=== PATIENT | male | born 1960 | race Caucasian/White ===

== ENCOUNTER 2017-12-27 16:13 | Inpatient (IN) | payer OTHER ==
[2017-12-27] MEDS ORDERED: DILTIAZEM 50 MG INJ IV (16:30)
[2017-12-27] MEDS: DILTIAZEM 50 MG INJ IV (16:39)
[2017-12-27] MEDS: SOD CHLORIDE 0.9% 1,000 ML IV (16:40)
[2017-12-27] MEDS: ADENOSINE 6 MG INJ IV (16:40)
[2017-12-27] MEDS: ASPIRIN 325 MG TAB PO (16:40)
[2017-12-27 16:52] LABS: WHITE BLOOD COUNT 6.3 10^3/ul (4.8-10.8)
[2017-12-27 16:52] LABS: ABNORMAL IP MESSAGE 1; HEMATOCRIT 39.2 % (42.0-52.0); HEMOGLOBIN 14.4 g/dl (14.0-18.0); MEAN CORPUSCULAR HEMOGLOBIN 35.9 pg (29.0-33.0); MEAN CORPUSCULAR HGB CONC 36.7 g/dl (32.0-37.0); MEAN CORPUSCULAR VOLUME 97.8 fl (82.0-101.0); MEAN PLATELET VOLUME 9.4 fl (7.4-10.4); PLATELET COUNT 282 10^3/UL (140-415); POSITIVE DIFF @See below; RED BLOOD COUNT 4.01 10^6/ul (4.70-6.10); RED CELL DISTRIBUTION WIDTH 11.4 % (11.5-14.5)
[2017-12-27 16:56] LABS: ADD MAN DIFF? YES
[2017-12-27] MEDS: DILTIAZEM-D5W 125MG/125ML DRIP 125 ML IV (17:14)
[2017-12-27 17:46] LABS: ANION GAP 21 (8-16); BLOOD UREA NITROGEN 33 mg/dl (7-20); CALCIUM 8.5 mg/dl (8.4-10.2); CARBON DIOXIDE 20 mmol/L (21-31); CHLORIDE 89 mmol/L (97-110); CREATININE 0.67 mg/dl (0.61-1.24); GLUCOSE 90 mg/dl (70-220); SODIUM 127 mmol/L (135-144)
[2017-12-27 17:51] LABS: POTASSIUM 2.9 mmol/L (3.5-5.1)
[2017-12-27 17:58] LABS: B-TYPE NATRIURETIC PEPTIDE 959 PG/ML (0-125); TROPONIN-I 0.046 ng/ml (0.00-0.12)
[2017-12-27] MEDS: POTASSIUM CHLORIDE (SR) 20 MEQ TAB PO (18:02)
[2017-12-27 18:31] LABS: MAGNESIUM 2.2 mg/dl (1.7-2.5)
[2017-12-27 18:55] LABS: BAND NEUTROPHILS #M 0.8 10^3/ul (0.0-0.6); BAND NEUTROPHILS % (M) 14 % (0-4); GIANT THROMBO% (M) 2 % (0-0); LYMPHOCYTES #M 0.8 10^3/ul (0.8-2.9); LYMPHOCYTES % (M) 13 % (15-51); MONOCYTE #M 1.1 10^3/ul (0.3-0.9); MONOCYTES % (M) 18 % (0-11); PLATELET ESTIMATE NORMAL; SEG NEUT #M 3.5 10^3/ul (1.6-7.5); SEGMENTED NEUTROPHILS (M) % 55 % (39-77)
[2017-12-27 19:09] LABS: INR 0.88; PT RATIO 0.9
[2017-12-27] MEDS: SOD CHLORIDE 0.45% 1,000 ML IV (19:10)
[2017-12-27] MEDS ORDERED: DILTIAZEM-D5W 125MG/125ML DRIP 125 ML IV (19:30)
[2017-12-27] MEDS ORDERED: ALBUTEROL/IPRATROPIUM (NEB) 3 ML AMP HHN (19:30)
[2017-12-27] MEDS ORDERED: NITROGLYCERIN (SL) 0.4 MG TAB SL (19:30)
[2017-12-27] MEDS ORDERED: MAGNESIUM HYDROXIDE 30ML CUP PO (19:30)
[2017-12-27] MEDS ORDERED: ACETAMINOPHEN 325 MG TAB PO (19:30)
[2017-12-27] MEDS ORDERED: NA PHOSPHATE/BIPHOS 133 ML ENEMA PR (19:30)
[2017-12-27] MEDS ORDERED: NACL 0.9% 3 ML SYG IV (19:30)
[2017-12-27 19:42] LABS: PARTIAL THROMBOPLASTIN TIME 29.5 Sec (25.0-35.0)
[2017-12-27 19:55] LABS: CREATINE KINASE 669 IU/L (23-200)
[2017-12-27 20:07] LABS: CK INDEX 1.4; TROPONIN-I 0.061 ng/ml (0.00-0.12)
[2017-12-27 20:16] LABS: CK-MB 9.62 ng/ml (0.0-2.4)
[2017-12-27] MEDS: FAMOTIDINE 20 MG TAB PO (22:01)
[2017-12-27] MEDS: HEPARIN 5,000 UNIT/0.5 ML VIAL SC (22:28)
[2017-12-28 00:15] LABS: CREATINE KINASE 551 IU/L (23-200)
[2017-12-28 00:26] LABS: CK INDEX 1.4; TROPONIN-I 0.057 ng/ml (0.00-0.12)
[2017-12-28 00:29] LABS: CK-MB 7.93 ng/ml (0.0-2.4)
[2017-12-28 00:32] LABS: FREE T4 (FREE THYROXINE) 1.56 ng/dl (0.64-1.79)
[2017-12-28] MEDS: POTASSIUM CHLORIDE 30 MEQ in SOD CHLORIDE 0.9% 1,000 ML IV ×2 (03:17→11:00)
[2017-12-28] MEDS: morphine 2 MG INJ IV (03:26)
[2017-12-28 03:50] LABS: CREATINE KINASE 431 IU/L (23-200)
[2017-12-28 03:53] LABS: ETHANOL < 10.0 mg/dl
[2017-12-28 04:03] LABS: CK INDEX 1.5; TROPONIN-I 0.039 ng/ml (0.00-0.12)
[2017-12-28 04:14] LABS: CK-MB 6.68 ng/ml (0.0-2.4)
[2017-12-28] MEDS: DILTIAZEM 60 MG TAB PO ×3 (05:50→18:26)
[2017-12-28 06:11] LABS: WHITE BLOOD COUNT 3.8 10^3/ul (4.8-10.8)
[2017-12-28 06:11] LABS: HEMATOCRIT 32.5 % (42.0-52.0); HEMOGLOBIN 11.9 g/dl (14.0-18.0); MEAN CORPUSCULAR HEMOGLOBIN 35.8 pg (29.0-33.0); MEAN CORPUSCULAR HGB CONC 36.6 g/dl (32.0-37.0); MEAN CORPUSCULAR VOLUME 97.9 fl (82.0-101.0); MEAN PLATELET VOLUME 8.8 fl (7.4-10.4); PLATELET COUNT 219 10^3/UL (140-415); RED BLOOD COUNT 3.32 10^6/ul (4.70-6.10); RED CELL DISTRIBUTION WIDTH 11.4 % (11.5-14.5)
[2017-12-28 06:27] LABS: CHOLESTEROL 154 mg/dl (100-200)
[2017-12-28 06:27] LABS: CHOL/HDL RATIO 2.2 RATIO; HDL CHOLESTEROL 67 mg/dl (28-71); LDL CHOLESTEROL,CALCULATED 73 mg/dl; TRIGLYCERIDES 72 mg/dl (0-149)
[2017-12-28 06:28] LABS: ADD MAN DIFF? YES
[2017-12-28 06:34] LABS: ANION GAP 14 (8-16); BLOOD UREA NITROGEN 18 mg/dl (7-20); CALCIUM 8.1 mg/dl (8.4-10.2); CARBON DIOXIDE 26 mmol/L (21-31); CHLORIDE 92 mmol/L (97-110); GLUCOSE 74 mg/dl (70-220); PHOSPHORUS 1.9 mg/dl (2.5-4.9); POTASSIUM 3.4 mmol/L (3.5-5.1); SODIUM 129 mmol/L (135-144)
[2017-12-28 06:36] LABS: CREATINE KINASE 360 IU/L (23-200)
[2017-12-28 06:40] LABS: CK INDEX 1.6
[2017-12-28 07:06] LABS: CK-MB 5.74 ng/ml (0.0-2.4)
[2017-12-28 08:11] LABS: BAND NEUTROPHILS #M 0.5 10^3/ul (0.0-0.6); BAND NEUTROPHILS % (M) 14 % (0-4); LYMPHOCYTES #M 0.9 10^3/ul (0.8-2.9); LYMPHOCYTES % (M) 24 % (15-51); MONOCYTE #M 0.9 10^3/ul (0.3-0.9); MONOCYTES % (M) 24 % (0-11); PLATELET ESTIMATE NORMAL; REACTIVE LYMPHOCYTES% (M) 1 % (0-0); SEG NEUT #M 1.4 10^3/ul (1.6-7.5); SEGMENTED NEUTROPHILS (M) % 37 % (39-77)
[2017-12-28 08:37] LABS: HEMOGLOBIN A1C 4.7 % (0-5.9)
[2017-12-28] MEDS: FAMOTIDINE 20 MG TAB PO ×2 (08:41→20:28)
[2017-12-28] MEDS: HEPARIN 5,000 UNIT/0.5 ML VIAL SC ×2 (08:43→20:33)
[2017-12-28 08:57] LABS: ADD UMIC YES; UR ASCORBIC ACID NEGATIVE (NEGATIVE); UR BACTERIA FEW /HPF (NONE SEEN); UR BILIRUBIN (Dip) NEGATIVE (NEGATIVE); UR BLOOD (Dip) 1+ mg/dL (NEGATIVE); UR CLARITY CLEAR (CLEAR); UR COLOR YELLOW (YELLOW); UR GLUCOSE (Dip) 2+ mg/dL (NEGATIVE); UR KETONES (Dip) 1+ mg/dL (NEGATIVE); UR LEUKOCYTE ESTERASE (Dip) 3+ Leu/ul (NEGATIVE); UR NITRITE (Dip) NEGATIVE (NEGATIVE); UR RBC 2 /HPF (0-5); UR TOTAL PROTEIN (Dip) NEGATIVE (NEGATIVE); UR UROBILINOGEN (Dip) 2+ mg/dL (NEGATIVE); UR WBC 28 /HPF (0-5)
[2017-12-28] MEDS: POTASSIUM PHOSPHATE 30 MM in SOD CHLORIDE 0.9% 250 ML IVPB (09:30)
[2017-12-28 09:51] LABS: AMPHETAMINE/METHAMPHETAMINE Negative (NEGATIVE); BARBITURATES Negative (NEGATIVE); BENZODIAZEPINES Negative (NEGATIVE); CANNABINOIDS Positive (NEGATIVE); COCAINE Negative (NEGATIVE); OPIATES Negative (NEGATIVE)
[2017-12-28] MEDS: SOD CHLORIDE 0.9% 1,000 ML IV (10:24)
[2017-12-29] MEDS: DILTIAZEM 60 MG TAB PO ×3 (00:07→12:35)
[2017-12-29] MEDS: SOD CHLORIDE 0.9% 1,000 ML IV ×2 (00:08→19:38)
[2017-12-29 06:51] LABS: ADD MAN DIFF? NO
[2017-12-29 07:04] LABS: WHITE BLOOD COUNT 4.8 10^3/ul (4.8-10.8)
[2017-12-29 07:04] LABS: ABNORMAL IP MESSAGE 1; BASOPHILS % 0.2 % (0.0-2.0); EOSINOPHILS % 0.4 % (0.0-7.0); HEMATOCRIT 33.1 % (42.0-52.0); HEMOGLOBIN 12.1 g/dl (14.0-18.0); LYMPHOCYTES # 0.5 10^3/ul (0.8-2.9); LYMPHOCYTES % 10.3 % (15.0-51.0); MEAN CORPUSCULAR HEMOGLOBIN 36.4 pg (29.0-33.0); MEAN CORPUSCULAR HGB CONC 36.6 g/dl (32.0-37.0); MEAN CORPUSCULAR VOLUME 99.7 fl (82.0-101.0); MONOCYTE # 1.1 10^3/ul (0.3-0.9); MONOCYTES % 23.3 % (0.0-11.0); NEUTROPHILS % 63.5 % (39.0-77.0); PLATELET COUNT 248 10^3/UL (140-415); POSITIVE DIFF @See below; RED BLOOD COUNT 3.32 10^6/ul (4.70-6.10); RED CELL DISTRIBUTION WIDTH 11.4 % (11.5-14.5)
[2017-12-29 07:25] LABS: ANION GAP 11 (8-16); BLOOD UREA NITROGEN 7 mg/dl (7-20); CALCIUM 8.2 mg/dl (8.4-10.2); CARBON DIOXIDE 29 mmol/L (21-31); CHLORIDE 93 mmol/L (97-110); CREATININE 0.58 mg/dl (0.61-1.24); GLUCOSE 81 mg/dl (70-220); SODIUM 130 mmol/L (135-144)
[2017-12-29 07:34] LABS: POTASSIUM 2.9 mmol/L (3.5-5.1)
[2017-12-29] MEDS: POTASSIUM CHLORIDE (SR) 20 MEQ TAB PO (09:15)
[2017-12-29] MEDS: FAMOTIDINE 20 MG TAB PO ×2 (09:16→22:13)
[2017-12-29] MEDS: HEPARIN 5,000 UNIT/0.5 ML VIAL SC ×2 (09:25→22:22)
[2017-12-29] MEDS: NYSTATIN SUSP 5 ML CUP PO ×4 (10:33→22:13)
[2017-12-29] MEDS: POTASSIUM CHLORIDE 100 ML IVPB ×2 (10:34→14:33)
[2017-12-29] MEDS ORDERED: VITAMIN A & D 5 GM OINT PACKET TOP (19:43)
[2017-12-30] MEDS: HYDROCODONE/APAP (5/325) TAB PO ×3 (00:10→20:15)
[2017-12-30] MEDS: morphine 2 MG INJ IV ×3 (00:55→12:29)
[2017-12-30] MEDS: SOD CHLORIDE 0.9% 1,000 ML IV ×2 (02:38→08:45)
[2017-12-30] MEDS: LIDOCAINE 5% PATCH TD ×3 (02:41→18:30)
[2017-12-30] MEDS: HYDROmorphONE 0.5 MG/0.5 ML SYG IV ×2 (03:02→22:47)
[2017-12-30] MEDS: KETOROLAC 30 MG INJ IV ×2 (05:46→20:15)
[2017-12-30] MEDS: hydrALAzine 20 MG INJ IV (05:46)
[2017-12-30] MEDS: NYSTATIN SUSP 5 ML CUP PO ×4 (08:43→20:15)
[2017-12-30] MEDS: METOPROLOL (XL) 25 MG TAB PO (08:45)
[2017-12-30] MEDS: FAMOTIDINE 20 MG TAB PO ×2 (08:45→20:15)
[2017-12-30] MEDS: HEPARIN 5,000 UNIT/0.5 ML VIAL SC ×2 (08:48→20:30)
[2017-12-30 09:51] LABS: WHITE BLOOD COUNT 14.2 10^3/ul (4.8-10.8)
[2017-12-30 09:51] LABS: ABNORMAL IP MESSAGE 1; HEMATOCRIT 32.4 % (42.0-52.0); HEMOGLOBIN 11.8 g/dl (14.0-18.0); MEAN CORPUSCULAR HEMOGLOBIN 36.2 pg (29.0-33.0); MEAN CORPUSCULAR HGB CONC 36.4 g/dl (32.0-37.0); MEAN CORPUSCULAR VOLUME 99.4 fl (82.0-101.0); MEAN PLATELET VOLUME 8.9 fl (7.4-10.4); PLATELET COUNT 270 10^3/UL (140-415); POSITIVE DIFF @See below; RED BLOOD COUNT 3.26 10^6/ul (4.70-6.10); RED CELL DISTRIBUTION WIDTH 11.4 % (11.5-14.5)
[2017-12-30 09:57] LABS: ADD MAN DIFF? YES
[2017-12-30 10:16] LABS: ALANINE AMINOTRANSFERASE 55 IU/L (13-69); ALBUMIN 2.7 g/dl (3.3-4.9); ALBUMIN/GLOBULIN RATIO 1.08; ALKALINE PHOSPHATASE 55 IU/L (42-121); ANION GAP 6 (8-16); ASPARTATE AMINO TRANSFERASE 27 IU/L (15-46); BILIRUBIN,INDIRECT 0.7 mg/dl (0-1.1); BILIRUBIN,TOTAL 0.7 mg/dl (0.2-1.3); BLOOD UREA NITROGEN 6 mg/dl (7-20); CALCIUM 8.4 mg/dl (8.4-10.2); CARBON DIOXIDE 34 mmol/L (21-31); CHLORIDE 89 mmol/L (97-110); CREATININE 0.61 mg/dl (0.61-1.24); GLUCOSE 93 mg/dl (70-220); POTASSIUM 3.4 mmol/L (3.5-5.1); SODIUM 126 mmol/L (135-144); TOTAL PROTEIN 5.2 g/dl (6.1-8.1)
[2017-12-30 10:22] LABS: MAGNESIUM 1.2 mg/dl (1.7-2.5)
[2017-12-30 10:22] LABS: PHOSPHORUS 1.9 mg/dl (2.5-4.9)
[2017-12-30 10:39] LABS: ANISOCYTOSIS 1+ (0-0); BAND NEUTROPHILS #M 7.6 10^3/ul (0.0-0.6); BAND NEUTROPHILS % (M) 54 % (0-4); GIANT THROMBO% (M) 2 % (0-0); LYMPHOCYTES #M 0.4 10^3/ul (0.8-2.9); LYMPHOCYTES % (M) 3 % (15-51); METAMYELOCYTES #M 0.1 10^3/ul (0.0-0.0); METAMYELOCYTES %M 1 % (0-0); MONOCYTE #M 0.4 10^3/ul (0.3-0.9); MONOCYTES % (M) 3 % (0-11); PLATELET ESTIMATE NORMAL; POLYCHROMASIA 3+ (0-0); SEG NEUT #M 6.6 10^3/ul (1.6-7.5); SEGMENTED NEUTROPHILS (M) % 39 % (39-77); SMUDGE%M 2 % (0-0)
[2017-12-30] MEDS: POTASSIUM CHLORIDE (SR) 20 MEQ TAB PO (11:49)
[2017-12-30] MEDS: MAGNESIUM OXIDE 400 MG TAB PO ×2 (12:29→20:21)
[2017-12-30] MEDS: SOD PHOS MONO/DIBAS 250 MG TAB PO (15:28)
[2017-12-30] MEDS ORDERED: ALBUTEROL 0.083% (NEB) 2.5 MG/3 ML AMP HHN (15:30)
[2017-12-30 18:11] LABS: ADD UMIC YES; UR ASCORBIC ACID NEGATIVE (NEGATIVE); UR BILIRUBIN (Dip) NEGATIVE (NEGATIVE); UR BLOOD (Dip) NEGATIVE (NEGATIVE); UR CLARITY CLEAR (CLEAR); UR COLOR YELLOW (YELLOW); UR GLUCOSE (Dip) 1+ mg/dL (NEGATIVE); UR KETONES (Dip) 1+ mg/dL (NEGATIVE); UR LEUKOCYTE ESTERASE (Dip) NEGATIVE Leu/ul (NEGATIVE); UR NITRITE (Dip) NEGATIVE (NEGATIVE); UR RBC 1 /HPF (0-5); UR SPECIFIC GRAVITY (Dip) 1.016 (1.003-1.030); UR TOTAL PROTEIN (Dip) 1+ mg/dl (NEGATIVE); UR UROBILINOGEN (Dip) 2+ mg/dL (NEGATIVE); UR WBC 1 /HPF (0-5)
[2017-12-30 18:23] LABS: SODIUM,URINE RANDOM 33 mmol/L (30-90)
[2017-12-30 18:25] LABS: POTASSIUM,URINE RANDOM > 121.8 mmol/L (25-125)
[2017-12-30] MEDS: LEVOFLOXACIN 500MG/D5W (PMX) 100 ML IVPB (18:41)
[2017-12-30] MEDS: ALBUTEROL 0.083% (NEB) 2.5 MG/3 ML AMP HHN (19:41)
[2017-12-30 20:00] LABS: OSMOLALITY,URINE 604 mOsm/kg (250-1200)
[2017-12-31] MEDS: HYDROCODONE/APAP (5/325) TAB PO ×2 (02:15→09:37)
[2017-12-31] MEDS: KETOROLAC 30 MG INJ IV (02:16)
[2017-12-31] MEDS: SOD CHLORIDE 0.9% 1,000 ML IV ×3 (02:17→15:26)
[2017-12-31 08:50] LABS: ADD MAN DIFF? NO
[2017-12-31 08:54] LABS: ABNORMAL IP MESSAGE 1; BASOPHIL # 0.1 10^3/ul (0.0-0.1); BASOPHILS % 0.6 % (0.0-2.0); HEMATOCRIT 34.2 % (42.0-52.0); HEMOGLOBIN 12.1 g/dl (14.0-18.0); LYMPHOCYTES # 0.3 10^3/ul (0.8-2.9); LYMPHOCYTES % 1.5 % (15.0-51.0); MEAN CORPUSCULAR HEMOGLOBIN 36.1 pg (29.0-33.0); MEAN CORPUSCULAR HGB CONC 35.4 g/dl (32.0-37.0); MEAN CORPUSCULAR VOLUME 102.1 fl (82.0-101.0); MEAN PLATELET VOLUME 9.7 fl (7.4-10.4); MONOCYTE # 1.1 10^3/ul (0.3-0.9); MONOCYTES % 4.8 % (0.0-11.0); NEUTROPHIL # 20.2 10^3/ul (1.6-7.5); PLATELET COUNT 248 10^3/UL (140-415); POSITIVE DIFF @See below; RED BLOOD COUNT 3.35 10^6/ul (4.70-6.10); RED CELL DISTRIBUTION WIDTH 11.4 % (11.5-14.5)
[2017-12-31 08:55] LABS: NEUTROPHILS % 91.9 % (39.0-77.0)
[2017-12-31] MEDS: MAGNESIUM OXIDE 400 MG TAB PO ×2 (08:57→21:21)
[2017-12-31] MEDS: FAMOTIDINE 20 MG TAB PO ×2 (08:57→21:21)
[2017-12-31] MEDS: LORAZEPAM 0.5 MG TAB PO (08:57)
[2017-12-31] MEDS: ONDANSETRON 4 MG INJ IV (08:57)
[2017-12-31] MEDS: NYSTATIN SUSP 5 ML CUP PO ×4 (08:58→21:20)
[2017-12-31] MEDS: METOPROLOL (XL) 50 MG TAB PO (08:58)
[2017-12-31] MEDS: LIDOCAINE 5% PATCH TD (08:59)
[2017-12-31] MEDS: morphine 2 MG INJ IV ×3 (08:59→22:41)
[2017-12-31] MEDS: ALBUTEROL 0.083% (NEB) 2.5 MG/3 ML AMP HHN ×3 (09:02→21:15)
[2017-12-31] MEDS: HEPARIN 5,000 UNIT/0.5 ML VIAL SC ×2 (09:02→21:27)
[2017-12-31 09:14] LABS: ANION GAP 14 (8-16); BLOOD UREA NITROGEN 13 mg/dl (7-20); CALCIUM 8.1 mg/dl (8.4-10.2); CARBON DIOXIDE 28 mmol/L (21-31); CHLORIDE 88 mmol/L (97-110); CREATININE 0.63 mg/dl (0.61-1.24); GLUCOSE 92 mg/dl (70-220); POTASSIUM 3.3 mmol/L (3.5-5.1); SODIUM 127 mmol/L (135-144)
[2017-12-31] MEDS: MAGNESIUM SULFATE 4 GM/100 ML 100 ML IVPB (09:37)
[2017-12-31 09:41] LABS: MAGNESIUM 1.4 mg/dl (1.7-2.5)
[2017-12-31] MEDS: POTASSIUM CHLORIDE (SR) 20 MEQ TAB PO ×2 (09:44→13:45)
[2017-12-31] MEDS: OXYCODONE/ACETAMINOPHEN (5/325) TAB PO ×2 (12:18→21:20)
[2017-12-31] MEDS: LEVOFLOXACIN 500MG/D5W (PMX) 100 ML IVPB (17:16)
[2018-01-01] MEDS: KETOROLAC 30 MG INJ IV (04:15)
[2018-01-01 06:55] LABS: WHITE BLOOD COUNT 17.3 10^3/ul (4.8-10.8)
[2018-01-01 06:55] LABS: ABNORMAL IP MESSAGE 1; HEMATOCRIT 30.4 % (42.0-52.0); HEMOGLOBIN 10.9 g/dl (14.0-18.0); MEAN CORPUSCULAR HEMOGLOBIN 36.1 pg (29.0-33.0); MEAN CORPUSCULAR HGB CONC 35.9 g/dl (32.0-37.0); MEAN CORPUSCULAR VOLUME 100.7 fl (82.0-101.0); MEAN PLATELET VOLUME 9.5 fl (7.4-10.4); PLATELET COUNT 251 10^3/UL (140-415); POSITIVE DIFF @See below; RED BLOOD COUNT 3.02 10^6/ul (4.70-6.10); RED CELL DISTRIBUTION WIDTH 11.5 % (11.5-14.5)
[2018-01-01 06:59] LABS: ADD MAN DIFF? YES
[2018-01-01 07:18] LABS: PHOSPHORUS 2.5 mg/dl (2.5-4.9)
[2018-01-01 07:18] LABS: ALANINE AMINOTRANSFERASE 37 IU/L (13-69); ALBUMIN 2.2 g/dl (3.3-4.9); ALBUMIN/GLOBULIN RATIO 0.91; ALKALINE PHOSPHATASE 75 IU/L (42-121); ANION GAP 7 (8-16); ASPARTATE AMINO TRANSFERASE 15 IU/L (15-46); BILIRUBIN,INDIRECT 0.3 mg/dl (0-1.1); BILIRUBIN,TOTAL 0.3 mg/dl (0.2-1.3); BLOOD UREA NITROGEN 11 mg/dl (7-20); CALCIUM 7.9 mg/dl (8.4-10.2); CARBON DIOXIDE 31 mmol/L (21-31); CHLORIDE 92 mmol/L (97-110); CREATININE 0.74 mg/dl (0.61-1.24); GLUCOSE 118 mg/dl (70-220); MAGNESIUM 2.2 mg/dl (1.7-2.5); POTASSIUM 4.6 mmol/L (3.5-5.1); SODIUM 125 mmol/L (135-144); TOTAL PROTEIN 4.6 g/dl (6.1-8.1)
[2018-01-01] MEDS: morphine 2 MG INJ IV ×2 (08:43→16:48)
[2018-01-01] MEDS: MAGNESIUM OXIDE 400 MG TAB PO ×2 (08:47→20:00)
[2018-01-01] MEDS: FAMOTIDINE 20 MG TAB PO ×2 (08:48→19:55)
[2018-01-01] MEDS: NYSTATIN SUSP 5 ML CUP PO ×4 (08:48→19:55)
[2018-01-01] MEDS: ALBUTEROL 0.083% (NEB) 2.5 MG/3 ML AMP HHN ×3 (08:50→20:17)
[2018-01-01] MEDS: HEPARIN 5,000 UNIT/0.5 ML VIAL SC ×2 (08:50→19:57)
[2018-01-01] MEDS: LIDOCAINE 5% PATCH TD (08:55)
[2018-01-01 09:36] LABS: BAND NEUTROPHILS #M 3.2 10^3/ul (0.0-0.6); BAND NEUTROPHILS % (M) 19 % (0-4); LYMPHOCYTES #M 0.1 10^3/ul (0.8-2.9); LYMPHOCYTES % (M) 1 % (15-51); MONOCYTE #M 0.3 10^3/ul (0.3-0.9); MONOCYTES % (M) 2 % (0-11); PLATELET ESTIMATE NORMAL; POIKILOCYTOSIS 1+ (0-0); SEGMENTED NEUTROPHILS (M) % 78 % (39-77); SMUDGE%M 4 % (0-0)
[2018-01-01] MEDS: METOPROLOL (XL) 50 MG TAB PO (10:42)
[2018-01-01] MEDS: OXYCODONE/ACETAMINOPHEN (5/325) TAB PO ×2 (11:57→18:15)
[2018-01-01] MEDS: LEVOFLOXACIN 500MG/D5W (PMX) 100 ML IVPB (18:15)
[2018-01-02] MEDS: DOCUSATE SODIUM 100 MG CAP PO (00:15)
[2018-01-02] MEDS: OXYCODONE/ACETAMINOPHEN (5/325) TAB PO ×4 (00:15→18:29)
[2018-01-02] MEDS: LORAZEPAM 0.5 MG TAB PO (03:12)
[2018-01-02] MEDS: ALBUTEROL 0.083% (NEB) 2.5 MG/3 ML AMP HHN ×3 (07:50→19:23)
[2018-01-02 08:44] LABS: ADD MAN DIFF? NO
[2018-01-02 08:48] LABS: ABNORMAL IP MESSAGE 1; BASOPHIL # 0.1 10^3/ul (0.0-0.1); BASOPHILS % 0.4 % (0.0-2.0); HEMATOCRIT 30.8 % (42.0-52.0); HEMOGLOBIN 11.1 g/dl (14.0-18.0); LYMPHOCYTES # 0.5 10^3/ul (0.8-2.9); LYMPHOCYTES % 3.6 % (15.0-51.0); MEAN CORPUSCULAR HEMOGLOBIN 36.3 pg (29.0-33.0); MEAN CORPUSCULAR VOLUME 100.7 fl (82.0-101.0); MEAN PLATELET VOLUME 9.7 fl (7.4-10.4); MONOCYTE # 1.2 10^3/ul (0.3-0.9); MONOCYTES % 8.6 % (0.0-11.0); NEUTROPHIL # 12.3 10^3/ul (1.6-7.5); NEUTROPHILS % 86.4 % (39.0-77.0); PLATELET COUNT 294 10^3/UL (140-415); POSITIVE DIFF @See below; RED BLOOD COUNT 3.06 10^6/ul (4.70-6.10); RED CELL DISTRIBUTION WIDTH 11.5 % (11.5-14.5)
[2018-01-02 08:48] LABS: WHITE BLOOD COUNT 14.3 10^3/ul (4.8-10.8)
[2018-01-02] MEDS: NYSTATIN SUSP 5 ML CUP PO ×4 (09:11→20:16)
[2018-01-02] MEDS: FAMOTIDINE 20 MG TAB PO ×2 (09:11→20:16)
[2018-01-02] MEDS: MAGNESIUM OXIDE 400 MG TAB PO ×3 (09:11→20:16)
[2018-01-02] MEDS: METOPROLOL (XL) 50 MG TAB PO (09:11)
[2018-01-02] MEDS: LIDOCAINE 5% PATCH TD (09:13)
[2018-01-02 09:15] LABS: ANION GAP 7 (8-16); BLOOD UREA NITROGEN 9 mg/dl (7-20); CALCIUM 8.1 mg/dl (8.4-10.2); CARBON DIOXIDE 32 mmol/L (21-31); CHLORIDE 93 mmol/L (97-110); CREATININE 0.63 mg/dl (0.61-1.24); GLUCOSE 99 mg/dl (70-220); POTASSIUM 3.8 mmol/L (3.5-5.1); SODIUM 128 mmol/L (135-144)
[2018-01-02 09:21] LABS: MAGNESIUM 1.8 mg/dl (1.7-2.5)
[2018-01-02] MEDS: HEPARIN 5,000 UNIT/0.5 ML VIAL SC ×2 (09:58→20:19)
[2018-01-02] MEDS: POTASSIUM CHLORIDE (SR) 20 MEQ TAB PO (15:20)
[2018-01-02] MEDS: LEVOFLOXACIN 500MG/D5W (PMX) 100 ML IVPB (17:30)
[2018-01-02] MEDS: MAGNESIUM SULFATE 3 GM in DEXTROSE 5% 100 ML IVPB (18:29)
[2018-01-02] MEDS: LORAZEPAM 2 MG INJ IV (20:16)
[2018-01-03] MEDS: OXYCODONE/ACETAMINOPHEN (5/325) TAB PO ×5 (01:37→21:01)
[2018-01-03] MEDS: DOCUSATE SODIUM 100 MG CAP PO (05:25)
[2018-01-03 06:15] LABS: ADD MAN DIFF? NO
[2018-01-03 06:26] LABS: BASOPHIL # 0.1 10^3/ul (0.0-0.1); BASOPHILS % 0.4 % (0.0-2.0); EOSINOPHILS % 0.1 % (0.0-7.0); HEMATOCRIT 32.6 % (42.0-52.0); HEMOGLOBIN 11.4 g/dl (14.0-18.0); LYMPHOCYTES # 0.9 10^3/ul (0.8-2.9); LYMPHOCYTES % 7.2 % (15.0-51.0); MEAN CORPUSCULAR HEMOGLOBIN 35.5 pg (29.0-33.0); MEAN CORPUSCULAR VOLUME 101.6 fl (82.0-101.0); MEAN PLATELET VOLUME 9.5 fl (7.4-10.4); MONOCYTE # 1.2 10^3/ul (0.3-0.9); MONOCYTES % 10.3 % (0.0-11.0); NEUTROPHIL # 9.5 10^3/ul (1.6-7.5); NEUTROPHILS % 81.3 % (39.0-77.0); PLATELET COUNT 294 10^3/UL (140-415); RED BLOOD COUNT 3.21 10^6/ul (4.70-6.10); RED CELL DISTRIBUTION WIDTH 11.5 % (11.5-14.5)
[2018-01-03 06:26] LABS: WHITE BLOOD COUNT 11.7 10^3/ul (4.8-10.8)
[2018-01-03 06:42] LABS: ANION GAP 8 (8-16); BLOOD UREA NITROGEN 10 mg/dl (7-20); CALCIUM 8.1 mg/dl (8.4-10.2); CARBON DIOXIDE 31 mmol/L (21-31); CHLORIDE 91 mmol/L (97-110); CREATININE 0.74 mg/dl (0.61-1.24); GLUCOSE 94 mg/dl (70-220); POTASSIUM 3.8 mmol/L (3.5-5.1); SODIUM 126 mmol/L (135-144)
[2018-01-03] MEDS: ALBUTEROL 0.083% (NEB) 2.5 MG/3 ML AMP HHN ×2 (07:33→13:45)
[2018-01-03] MEDS: METOPROLOL (XL) 50 MG TAB PO (09:22)
[2018-01-03] MEDS: NYSTATIN SUSP 5 ML CUP PO ×4 (09:22→21:01)
[2018-01-03] MEDS: MAGNESIUM OXIDE 400 MG TAB PO ×2 (09:23→21:01)
[2018-01-03] MEDS: FAMOTIDINE 20 MG TAB PO ×2 (09:23→21:15)
[2018-01-03] MEDS: LIDOCAINE 5% PATCH TD (09:23)
[2018-01-03] MEDS: HEPARIN 5,000 UNIT/0.5 ML VIAL SC ×2 (09:24→21:11)
[2018-01-03] MEDS: LORAZEPAM 0.5 MG TAB PO (13:55)
[2018-01-03] MEDS: morphine 2 MG INJ IV (13:55)
[2018-01-03] MEDS ORDERED: ALBUTEROL 0.083% (NEB) 2.5 MG/3 ML AMP HHN (14:30)
[2018-01-03] MEDS: THIAMINE 100 MG TAB PO (15:37)
[2018-01-03] MEDS: SOD CHLORIDE 0.9% 1,000 ML IV (15:40)
[2018-01-03] MEDS: LORAZEPAM 2 MG INJ IV (21:02)
[2018-01-04] MEDS: morphine 2 MG INJ IV ×2 (03:29→20:34)
[2018-01-04] MEDS: SOD CHLORIDE 0.9% 1,000 ML IV (03:30)
[2018-01-04] MEDS: LEVOFLOXACIN 500 MG TAB PO (05:46)
[2018-01-04] MEDS: OXYCODONE/ACETAMINOPHEN (5/325) TAB PO ×3 (05:57→22:51)
[2018-01-04 06:09] LABS: ADD MAN DIFF? NO
[2018-01-04 06:42] LABS: ANION GAP 13 (8-16); BLOOD UREA NITROGEN 12 mg/dl (7-20); CALCIUM 8.2 mg/dl (8.4-10.2); CARBON DIOXIDE 27 mmol/L (21-31); CHLORIDE 95 mmol/L (97-110); CREATININE 0.59 mg/dl (0.61-1.24); GLUCOSE 88 mg/dl (70-220); POTASSIUM 3.8 mmol/L (3.5-5.1); SODIUM 131 mmol/L (135-144)
[2018-01-04 06:42] LABS: MAGNESIUM 1.9 mg/dl (1.7-2.5)
[2018-01-04 06:45] LABS: BASOPHIL # 0.1 10^3/ul (0.0-0.1); BASOPHILS % 0.6 % (0.0-2.0); EOSINOPHILS % 0.1 % (0.0-7.0); MONOCYTE # 1.1 10^3/ul (0.3-0.9); POSITIVE DIFF @See below
[2018-01-04 06:47] LABS: WHITE BLOOD COUNT 12.2 10^3/ul (4.8-10.8)
[2018-01-04 06:47] LABS: HEMATOCRIT 36.7 % (42.0-52.0); HEMOGLOBIN 12.4 g/dl (14.0-18.0); MEAN CORPUSCULAR HEMOGLOBIN 35.2 pg (29.0-33.0); MEAN CORPUSCULAR VOLUME 104.3 fl (82.0-101.0); RED BLOOD COUNT 3.52 10^6/ul (4.70-6.10)
[2018-01-04 06:48] LABS: LYMPHOCYTES % 8.1 % (15.0-51.0); MEAN CORPUSCULAR HGB CONC 33.8 g/dl (32.0-37.0); MONOCYTES % 8.6 % (0.0-11.0); NEUTROPHIL # 9.9 10^3/ul (1.6-7.5); NEUTROPHILS % 81.2 % (39.0-77.0)
[2018-01-04 06:49] LABS: MEAN PLATELET VOLUME 11.1 fl (7.4-10.4); PLATELET COUNT 244 10^3/UL (140-415)
[2018-01-04] MEDS: METOPROLOL (XL) 50 MG TAB PO (10:20)
[2018-01-04] MEDS: MAGNESIUM OXIDE 400 MG TAB PO ×2 (10:22→20:34)
[2018-01-04] MEDS: NYSTATIN SUSP 5 ML CUP PO ×4 (10:22→20:34)
[2018-01-04] MEDS: FAMOTIDINE 20 MG TAB PO (10:22)
[2018-01-04] MEDS: THIAMINE 100 MG TAB PO (10:22)
[2018-01-04] MEDS: LIDOCAINE 5% PATCH TD (10:23)
[2018-01-04] MEDS: HEPARIN 5,000 UNIT/0.5 ML VIAL SC ×2 (10:24→20:45)
[2018-01-05] MEDS: morphine 2 MG INJ IV ×4 (04:10→21:28)
[2018-01-05] MEDS: LEVOFLOXACIN 500 MG TAB PO (05:33)
[2018-01-05] MEDS: THIAMINE 100 MG TAB PO (08:24)
[2018-01-05] MEDS: METOPROLOL (XL) 50 MG TAB PO (08:24)
[2018-01-05] MEDS: MAGNESIUM OXIDE 400 MG TAB PO ×2 (08:24→21:27)
[2018-01-05] MEDS: NYSTATIN SUSP 5 ML CUP PO ×4 (08:24→21:27)
[2018-01-05] MEDS: FAMOTIDINE 20 MG TAB PO (08:24)
[2018-01-05] MEDS: LIDOCAINE 5% PATCH TD (09:00)
[2018-01-05] MEDS: HEPARIN 5,000 UNIT/0.5 ML VIAL SC ×2 (09:00→21:29)
[2018-01-06 05:17] LABS: WHITE BLOOD COUNT 8.9 10^3/ul (4.8-10.8)
[2018-01-06 05:17] LABS: ADD MAN DIFF? NO; BASOPHIL # 0.1 10^3/ul (0.0-0.1); BASOPHILS % 0.8 % (0.0-2.0); EOSINOPHILS # 0.1 10^3/ul (0.0-0.5); EOSINOPHILS % 1.3 % (0.0-7.0); HEMATOCRIT 33.3 % (42.0-52.0); HEMOGLOBIN 11.4 g/dl (14.0-18.0); LYMPHOCYTES # 1.2 10^3/ul (0.8-2.9); LYMPHOCYTES % 13.9 % (15.0-51.0); MEAN CORPUSCULAR HEMOGLOBIN 34.7 pg (29.0-33.0); MEAN CORPUSCULAR HGB CONC 34.2 g/dl (32.0-37.0); MEAN CORPUSCULAR VOLUME 101.2 fl (82.0-101.0); MEAN PLATELET VOLUME 9.2 fl (7.4-10.4); MONOCYTE # 0.9 10^3/ul (0.3-0.9); MONOCYTES % 10.4 % (0.0-11.0); NEUTROPHIL # 6.4 10^3/ul (1.6-7.5); NEUTROPHILS % 71.7 % (39.0-77.0); PLATELET COUNT 423 10^3/UL (140-415); RED BLOOD COUNT 3.29 10^6/ul (4.70-6.10); RED CELL DISTRIBUTION WIDTH 11.7 % (11.5-14.5)
[2018-01-06 05:55] LABS: ANION GAP 7 (8-16); BLOOD UREA NITROGEN 9 mg/dl (7-20); CALCIUM 8.4 mg/dl (8.4-10.2); CARBON DIOXIDE 32 mmol/L (21-31); CHLORIDE 94 mmol/L (97-110); CREATININE 0.67 mg/dl (0.61-1.24); GLUCOSE 89 mg/dl (70-220); PHOSPHORUS 5.1 mg/dl (2.5-4.9); POTASSIUM 3.8 mmol/L (3.5-5.1); SODIUM 129 mmol/L (135-144)
[2018-01-06] MEDS: LEVOFLOXACIN 500 MG TAB PO (06:35)
[2018-01-06] MEDS: morphine 2 MG INJ IV (06:39)
[2018-01-06] MEDS: HEPARIN 5,000 UNIT/0.5 ML VIAL SC (09:00)
[2018-01-06] MEDS: LIDOCAINE 5% PATCH TD (09:10)
[2018-01-06] MEDS: NYSTATIN SUSP 5 ML CUP PO (09:10)
[2018-01-06] MEDS: MAGNESIUM OXIDE 400 MG TAB PO (09:10)
[2018-01-06] MEDS: FAMOTIDINE 20 MG TAB PO (09:11)
[2018-01-06] MEDS: METOPROLOL (XL) 50 MG TAB PO (09:12)
[2018-01-06] MEDS: THIAMINE 100 MG TAB PO (09:20)
== END 2018-01-06 10:49 | disposition home or self-care (01) | DRG 309 ==
LOC: MS4 18:32 → E/R 16:13 → MS1 01-04 23:15
PROVIDERS: Hospitalist
DX: I48.0 Paroxysmal atrial fibrillation (principal); E87.1 Hypo-osmolality and hyponatremia; E87.2 Acidosis; I47.1 Supraventricular tachycardia; E86.0 Dehydration; E86.1 Hypovolemia; D64.9 Anemia, unspecified; E87.6 Hypokalemia; F17.210 Nicotine dependence, cigarettes, uncomplicated; Z59.0 Homelessness; Z91.81 History of falling
CPT/HCPCS: 36415; 71045; 71100; 80048; 80053; 80061; 80306; 80307; 81001; 82533; 82550; 82553; 83036; 83735; 83880; 83935; 84100; 84133; 84300; 84439; 84443; 84484; 85025; 85610; 85730; 87086; 93005; 93306; 94640; 94664; 96372; 96374; 96375; 97110; 97116; 97163; 97530; 99291-25